=== PATIENT | female | born 1980 | race Asian ===

== ENCOUNTER 2020-06-24 08:29 | Outpatient (CLI) | payer BC, SELFPAY ==
[2020-06-24 09:20] LABS: Basophils Percent Auto 0.5 % (0.2-1.2); Eosinophils Absolute Auto 0.1 K/mm3 (0-0.3); Eosinophils Percent Auto 1.5 % (0-4.4); Hematocrit 41.2 % (37.0-47.0); Hemoglobin 14.3 g/dL (12.0-15.0); Immature Granulocyte Absolute 0.01 K/mm3 (0.00-0.031); Immature Granulocyte Percent A 0.2 % (0-0.5); Lymphocytes Percent Auto 27.7 % (18.3-44.2); Mean Corpuscular HGB Conc 34.7 g/dl (32-36); Mean Corpuscular Hemoglobin 30.6 pg (26-34); Mean Corpuscular Volume 88.2 fl (80-100); Mean Platelet Volume 9.8 fl (7.4-10.4); Monocytes Absolute Auto 0.5 K/mm3 (0.1-0.6); Neutrophils Absolute Auto 3.8 K/mm3 (1.3-6.7); Neutrophils Percent Auto 62.1 % (45.5-73.1); Platelet Count Result 285 k/mm3 (150-375); Red Blood Count 4.67 M/mm3 (4.2-5.4); Red Cell Distribution Width 11.9 % (11.5-14.5); White Blood Count 6.1 K/mm3 (4.5-10.0)
[2020-06-24 09:33] LABS: Alanine Aminotransferase 21 U/L (4-35); Albumin Level 4.4 g/dL (3.5-5.1); Alkaline Phosphatase 43 U/L (38-126); Anion Gap 8 mmol/L (8-16); Aspartate Amino Transferase 31 U/L (14-36); Bilirubin,Total 0.5 mg/dL (0.2-1.3); Blood Urea Nitrogen 16 mg/dL (7-17); Calcium 8.8 mg/dL (8.4-10.2); Carbon Dioxide 25 mmol/L (22-30); Chloride 104 mmol/L (98-107); Cholesterol 175 mg/dL (0-200); Estimated Glomerular Filt Rate > 60; Glucose 90 mg/dL (65-105); HDL Direct 51 mg/dL; Sodium 137 mmol/L (137-145); Triglycerides 116 mg/dL (<150)
[2020-06-24 09:42] LABS: LDL Cholesterol Direct 100 mg/dL
[2020-06-24 10:08] LABS: Vitamin D 25 Hydroxy 41.3 ng/mL
== END 2020-06-24 08:30 | disposition home or self-care (01) ==
PROVIDERS: PCP Obstetrics & Gynecology; Visit Provider Obstetrics & Gynecology
DX: Z13.29 Encounter for screening for other suspected endocrine disorder (principal); Z13.220 Encounter for screening for lipoid disorders
CPT/HCPCS: 36415; 80053; 80061; 82306; 84443; 85025

== ENCOUNTER → 2020-07-06 08:35 | Outpatient (CLI) | payer BC, SELFPAY ==
--- NOTE | ~2020-07-06 | MMUS_ITS ---
EXAMINATION: MM diagnostic oliver BI w kaycee, US breast BI limited HISTORY: Left lateral breast pain and lump TECHNIQUE: Craniocaudal, mediolateral, and mediolateral oblique 3-D tomosynthesis images of the brerenetta ts were performed and synthetic 2-D images were generated. Spot compression views are also obtained. CAD analysis was submitted and interpreted. High resolution limited bilateral breast ultrasound was p erformed. COMPARISON: None, baseline BREAST PARENCHYMAL COMPOSITION: The breasts are heterogeneously dense, which may obscure small masses . FINDINGS: MAMMOGRAPHIC FINDINGS: Right breast: Scattered benign-appearing calcifications are present. There is no evidence of suspicio us mass, calcification, or architectural distortion to suggest malignancy. Left breast: Scattered benign-appearing calcifications are present. There is a 7 mm oval, obscured, e qual density mass in the posterior third of the outer breast at the 4:00 location 8 cm from the nippl e. ULTRASOUND: Right breast: There are multiple small hypoechoic and anechoic circumscribed masses in the upper oute r quadrant of the breast measuring up to 6 mm most consistent with benign findings. Left breast: There is a 6 mm oval, circumscribed, parallel, hypoechoic mass with no posterior feature s or internal vascularity at the 3:00 location 6 cm from the nipple corresponding to the mammographic finding in question. A 7 mm x 3 mm mass with similar sonographic features is noted at the 3:00 locat ion 5 cm from the nipple. IMPRESSION: 1. Probably benign left breast masses. 2. Recommend 6 month follow-up left diagnostic mammogram and ultrasound. BI-RADS category 3, probably benign findings. Reviewed, dictated and finalized at location A. HOLOGY INSTRUCTOR IMPRESSION: 1. Probably benign left breast masses. 2. Recommend 6 month follow-up left diagnostic mammogram and ultrasound. BI-RADS category 3, probably benign findings.
== END ==
PROVIDERS: Visit Provider Obstetrics & Gynecology
DX: N63.25 Unspecified lump in the left breast, overlapping quadrants (principal)
CPT/HCPCS: 76642; 77062; 77066; G0279

== ENCOUNTER → 2021-02-17 08:50 | Outpatient (CLI) | payer BC, SELFPAY ==
--- NOTE | ~2021-02-17 | MMUS_ITS ---
EXAMINATION: MM diagnostic oliver LT w kaycee, US breast LT limited HISTORY: Probably benign 3:00 left breast masses, six-month follow-up TECHNIQUE: Full field and spot ML, MLO and craniocaudal 3-D tomosynthesis images of the left breast w ere performed and synthetic 2-D images were generated. CAD analysis was submitted and interpreted. Hi gh resolution limited breast ultrasound was performed. COMPARISON: 07/06/2020 bilateral diagnostic digital mammogram and Limited bilateral breast ultrasound BREAST PARENCHYMAL COMPOSITION: The breasts are heterogeneously dense, which may obscure small masses . FINDINGS: MAMMOGRAPHIC FINDINGS: There is a stable persistent 4.5 x 7 mm mass in the posterior lower outer quadrant of the left breast since 07/06/2020. Scattered punctate benign-appearing microcalcifications. ULTRASOUND: 3:00 6 cm from nipple: Parallel circumscribed 3.5 x 7.9 mm lesion with no internal vascularity or pos terior features, having benign sonographic appearance, likely corresponding to the mammographic findi ng noted in the posterior mid to lower outer left breast. 3:00 subareolar area: 3.6 x 4.3 x 6.2 mm benign-appearing lymph node. 4:00 2 cm from nipple: Irregular hypoechoic 3.5 mm mass with angular margin and adjacent vascularity; ultrasound-guided biopsy is recommended. IMPRESSION: 1. Irregular angular hypoechoic 3.5 mm mass at left breast 4:00 2 cm from nipple 2. Ultrasound-guided biopsy is recommended BI-RADS category 4, suspicious findings. Dr. Canas telephoned the report and ultrasound guided biopsy recommendation of the 4:00 lesion on 02/[address] Moore's [employer]'s voicemail. Reviewed, dictated and finalized at location A. IMPRESSION: 1. Irregular angular hypoechoic 3.5 mm mass at left breast 4:00 2 cm from nippl e 2. Ultrasound-guided biopsy is recommended BI-RADS category 4, suspicious findings. Dr. Canas telephoned the report and ultrasound guided biopsy recommendation of t he 4:00 lesion on 02/17/[address] Moore's [employer]'s [place].
== END ==
PROVIDERS: Visit Provider Obstetrics & Gynecology
DX: N63.23 Unspecified lump in the left breast, lower outer quadrant (principal); N63.25 Unspecified lump in the left breast, overlapping quadrants
CPT/HCPCS: 76642; 77061; 77065; G0279

== ENCOUNTER → 2022-05-02 12:01 | Outpatient (CLI) | payer BC, SELFPAY ==
--- NOTE | ~2022-05-02 | MM_ITS ---
EXAMINATION: MM screening oliver BI w kaycee HISTORY: Screening mammogram TECHNIQUE: Craniocaudal and mediolateral oblique 3-D tomosynthesis images were obtained and synthetic 2-D images were generated. CAD analysis was submitted and interpreted. COMPARISON: 02/13/2021 diagnostic left mammogram and limited left breast ultrasound examination 07/06/2020 diagnostic bilateral mammogram and bilateral Limited breast ultrasound BREAST PARENCHYMAL COMPOSITION: The breasts are heterogeneously dense, which may obscure small masses . FINDINGS: Scattered bilateral benign calcifications. Stable circumscribed approximately 3.7 x 6.5 mm opacity in the posterior outer mid to lower left breast. Clinical There is no evidence of suspicious mass, calcification, or architectural distortion to suggest malignancy in either breast. There has be en no suspicious interval change. IMPRESSION: 1. Stable benign calcifications in circumscribed posterior mid to lower outer left breast mass No oliver mographic evidence of malignancy. 2. Recommend routine screening mammography in one year. BI-RADS Category 2: Benign finding(s). Reviewed, dictated and finalized at location A. IMPRESSION: 1. Stable benign calcifications in circumscribed posterior mid to lower outer l eft breast mass No mammographic evidence of malignancy. 2. Recommend routine screening mammography in one year. BI-RADS Category 2: Benign finding(s).
== END ==
PROVIDERS: PCP Student in an Organized Health Care Education/Training Program; Visit Provider Student in an Organized Health Care Education/Training Program
DX: Z12.31 Encounter for screening mammogram for malignant neoplasm of breast (principal)
CPT/HCPCS: 77063; 77067

== ENCOUNTER → 2023-07-10 07:16 | Outpatient (CLI) | payer BC, SELFPAY ==
--- NOTE | ~2023-07-10 | MM_ITS ---
EXAMINATION: MM screening [facility] BI w kaycee HISTORY: Screening mammogram TECHNIQUE: Craniocaudal and mediolateral oblique 3-D tomosynthesis images were obtained and synthetic 2-D images were generated. CAD analysis was submitted and interpreted. COMPARISON: 05/02/2022, 08/26/2021, 02/17/2021, 07/06/2020 BREAST PARENCHYMAL COMPOSITION: The breasts are heterogeneously dense, which may obscure small masses . FINDINGS: Stable bilateral breast masses and breast calcifications are considered benign given the la ck of interval change. No suspicious mass, calcification, or architectural distortion are identified in either breast to suggest malignancy. There has been no suspicious interval change. IMPRESSION: 1. No mammographic evidence of malignancy. 2. Recommend routine screening mammography in one year. BI-RADS Category 2: Benign finding(s). Reviewed, dictated and finalized at location A. 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
== END ==
PROVIDERS: PCP Emergency Medicine; Visit Provider Emergency Medicine
DX: Z12.31 Encounter for screening mammogram for malignant neoplasm of breast (principal)
CPT/HCPCS: 77063; 77067